=== PATIENT | male | born 1995 | race Two or more races ===

== ENCOUNTER → 2024-11-27 | Emergency (ER) | payer OTHER ==
[~2024-11-27] VITALS: Ht 177.8 cm; Wt 95.3 kg
[~2024-11-27] MED LIST: 0.9 % SODIUM CHLORIDE 1,000 ML IV STA; KETOROLAC TROMETHAMINE 30 MG VIAL IV STA; MORPHINE SULFATE 4 MG/ML VIAL IV STA
[2024-11-27 13:29] LABS: BASO % 0.5 % (0.1-1.2); EOS # 0.08 (0.04-0.54); EOS % 1.2 % (0.7-7.0); LYMPH # 1.89 (1.18-3.74); LYMPH % 29.5 % (19.3-53.1); MEAN PLATELET VOLUME 10.00 fl (9.4-12.4); MONO # 0.46 (0.24-0.82); MONO % 7.2 % (4.7-12.5); NEUT # 3.94 (1.56-6.13); NEUT % 61.4 % (34.0-71.1); RED CELL DISTRIBUTION WIDTH 12.2 % (11.6-14.4)
[2024-11-27 13:33] LABS: URINE APPEARANCE Clear; URINE BILIRRUBIN Negative (NEGATIVE); URINE BLOOD Large; URINE COLOR Yellow; URINE GLUCOSE Negative (NEGATIVE); URINE KETONE Negative (NEGATIVE); URINE LEUKOCYTE Negative; URINE NITRATE Negative; URINE UROBILINOGEN 1.0 E.U./dl
[2024-11-27 13:36] LABS: URINE BACTERIA 31.1 uL (0.0-1933); URINE RBC 723.3 uL (0.0-20.8); URINE WBC 6.1 uL (0.0-23.2)
[2024-11-27 13:53] LABS: URINE CAST 0.29 uL (0.0-1.40); URINE EPITHELIAL CELLS 1.0 uL (0.0-38.8); URINE PROTEIN 100 (NEGATIVE)
[2024-11-27 14:09] LABS: ALT/SGPT 40.0 U/L (12-78); AST/SGOT 17.0 U/L (15-37); BILIRUBIN TOTAL 0.49 mg/dL (0.3-1.2); BUN CREA RATIO 13.0 (7.0-25.0); CREATININE SERUM 1.51 mg/dL (0.70-1.30); GFR 54.17; GLOBULINA 3.6 G/DL (2.4-3.5); GLUCOSE FASTING 107.0 mg/dL (65-100); OSMOLALITY SERUM 288.0 MOSM/KG (275-295)
== END | disposition home or self-care (01) ==
LOC: ER 11:45
DX: N20.1 Calculus of ureter (principal); R10.9 Unspecified abdominal pain